=== PATIENT | female | born 1995 | race Asian ===

== ENCOUNTER 2019-04-26 21:16 | Emergency (ER) | payer OTHER ==
[2019-04-26 21:30] VITALS: BP 108/72
--- NOTE | 2019-04-26 22:03 | UC ---
Complaint Female HPI - HPI Summary HPI Summary: Treated for BV one week ago with metronidazole; was advised to come for a test for cure. Currently at end of menses and is not aware of discharge , itch, dysuria or pelvic pain. Second concern is cough which started 2 weeks ago, dry, has some spasms of coughing. Was initally treated with fluticasone and antihistamine with no relief , then given a cough suppressant which caused vomiting when taken with metronidazole. Chest xray last week was normal. No history of asthma. not short of breath, does not feel well. Sleeping ok. - History Of Current Complaint Chief Complaint: UCGU Stated Complaint: BACTERIAL INFECTION FOLLOW UP Time Seen by Provider: 04/26/19 21:29 Hx Obtained From: Patient Hx Last Menstrual Period: 04/22/19 Onset/Duration: Gradual Onset Timing: Intermittent Severity Initially: Mild Severity Currently: Mild Pain Intensity: 0 Character: Not Applicable - Allergies/Home Medications Allergies/Adverse Reactions: Allergies Allergy/AdvReac Type Severity Reaction Status Date / Time No Known Allergies Allergy Verified 04/26/19 21:30 Home Medications: Home Medications Cough Med* PRN 04/26/19 [History] PMH/Surg Hx/FS Hx/Imm Hx Previously Healthy: Yes - Surgical History Surgical History: Yes Surgery Procedure, Year, and Place: ORAL SURGERY - Family History Known Family History: Positive: Respiratory Disease - brother has asthma - Social History Occupation: Employed Full-time, Student Lives: Alone Alcohol Use: Occasionally Substance Use Type: None Smoking Status (MU): Current Some Day Smoker Review of Systems All Other Systems Reviewed And Are Negative: Yes Constitutional: Positive: Negative. Negative: Fever, Fatigue ENT: Negative: Sore Throat, Ear Ache Respiratory: Positive: Cough. Negative: Shortness Of Breath Genitourinary: Positive: Negative Motor: Positive: Negative Musculoskeletal: Positive: Negative Is Patient Immunocompromised?: No Physical Exam Triage Information Reviewed: Yes Appearance: Well-Appearing, No Pain Distress Vital Signs: Initial Vital Signs Temp 99 F 04/26/19 21:25 Pulse 109 04/26/19 21:25 Resp 16 04/26/19 21:25 BP 108/72 04/26/19 21:25 Pulse Ox 100 04/26/19 21:25 Eye Exam: Normal ENT: Positive: Pharynx normal, TMs normal Neck: Positive: Supple, Nontender, No Lymphadenopathy Respiratory: Positive: Lungs clear, Normal breath sounds Cardiovascular: Positive: RRR, No Murmur Pelvic Exam: Positive: Other - BD Affirm swab obtained. Musculoskeletal Exam: Normal Neurological Exam: Normal Psychological Exam: Normal Skin Exam: Normal Complaint Female Dx - Course Course Of Treatment: Wait for follow up BD Affirm to ensure successful treatment. Discussed symptomatic treatment for cough - Differential Dx/Diagnosis Provider Diagnosis: Bacterial vaginosis, URI with cough and congestion Discharge - Sign-Out/Discharge Documenting (check all that apply): Patient Departure All imaging exams completed and their final reports reviewed: No Studies - Discharge Plan Condition: Stable Disposition: HOME Patient Education Materials: Bacterial Vaginosis (ED), Upper Respiratory Infection (ED) Referrals: No Primary Care Phys,NOPCP [Primary Care Provider] - Additional Instructions: The results of the vaginal swab will be able available on Tuesday morning. You will be called with a positive result, but can check in if you would like to confirm a negative result. The cough is likely secondary to a viral illness, and I suggest use of a suppressant until it passes. You can use Delsym over the counter, which is long acting and usually effective. - Billing Disposition and Condition Condition: STABLE Disposition: Home
== END 2019-04-26 22:15 | disposition home or self-care (01) ==
LOC: UCEAST 21:16
DX: N76.0 Acute vaginitis (principal); J06.9 Acute upper respiratory infection, unspecified; F17.210 Nicotine dependence, cigarettes, uncomplicated
CPT/HCPCS: 87480; 87510; 99212; G0463

== ENCOUNTER 2019-06-12 21:21 | Emergency (ER) | payer OTHER ==
--- NOTE | 2019-06-12 21:23 | UC ---
Complaint Female HPI - HPI Summary HPI Summary: 23 yo female presents with vaginal odor and discharge. She tells me that 1 month ago she was in [place] and tested positive for BV and was rx'd flagyl BID for 7 days, but she only took the medicine once a day for a few days and her infection never cleared. Over the last few days her odor and discharge has increased. She denies abdominal pain, n/v, dysuria, flank pain, vaginal bleeding. - History Of Current Complaint Stated Complaint: PRIVATE ISSUE Time Seen by Provider: 06/12/19 21:23 Hx Obtained From: Patient Hx Last Menstrual Period: 04/22/19 Severity Initially: Mild Severity Currently: Moderate Pain Intensity: 5 Pain Scale Used: 0-10 Numeric - Allergies/Home Medications Allergies/Adverse Reactions: Allergies Allergy/AdvReac Type Severity Reaction Status Date / Time No Known Allergies Allergy Verified 06/12/19 21:32 Home Medications: Home Medications Ibuprofen TAB* [Motrin TAB* 600 MG] 600 mg PO Q6H PRN 06/12/19 [History Confirmed 06/12/19] PMH/Surg Hx/FS Hx/Imm Hx - Additional Past Medical History Additional PMH: None - Surgical History Surgical History: Yes Surgery Procedure, Year, and Place: ORAL SURGERY - Family History Known Family History: Positive: Respiratory Disease - brother has asthma - Social History Lives: With Family Alcohol Use: Occasionally Substance Use Type: None Smoking Status (MU): Current Some Day Smoker Review of Systems All Other Systems Reviewed And Are Negative: Yes Constitutional: Positive: Negative Skin: Positive: Negative Respiratory: Positive: Negative Cardiovascular: Positive: Negative Genitourinary: Positive: Vaginal/Penile Discharge Neurovascular: Positive: Negative Neurological: Positive: Negative Psychological: Positive: Negative Physical Exam - Summary Physical Exam Summary: GENERAL: NAD. WDWN. No pain distress. SKIN: No rashes, sores, lesions, or open wounds. NECK: Supple. Nontender. No lymphadenopathy. CHEST: CTAB. No r/r/w. No accessory muscle use. Breathing comfortably and in no distress. CV: RRR. Without m/r/g. Pulses intact. Cap refill <2seconds ABDOMEN: Soft. NTTP. No CVA tenderness. Bowel sounds present NEURO: Alert. PSYCH: Age appropriate behavior. Triage Information Reviewed: Yes Vital Signs: Vital Signs: Temp Pulse Resp BP Pulse Ox 98.6 F 80 16 127/82 98 06/12/19 21:26 06/12/19 21:26 06/12/19 21:26 06/12/19 21:26 06/12/19 21:26 Vital Signs Reviewed: Yes Pelvic Exam: Positive: External Exam Normal, No Cerv. Motion Tender, No Masses, Discharge - mild thin white with fishy odor, Other - Exam assisted by Caty PALACIO. Negative: Active Bleeding, Ulcers Complaint Female Dx - Course Course Of Treatment: Exam consistent with BV. Will rx for flagyl and advised to take medication as prescribed - Differential Dx/Diagnosis Provider Diagnosis: Bacterial vaginosis Discharge - Sign-Out/Discharge Documenting (check all that apply): Patient Departure All imaging exams completed and their final reports reviewed: No Studies - Discharge Plan Condition: Stable Disposition: HOME Prescriptions: metroNIDAZOLE [Flagyl] 500 mg PO BID #14 tablet Patient Education Materials: Bacterial Vaginosis (ED) Referrals: No Primary Care Phys,NOPCP [Primary Care Provider] - Additional Instructions: If you develop a fever, shortness of breath, chest pain, new or worsening symptoms - please call your PCP or go to the ED immediately. - Billing Disposition and Condition Condition: STABLE Disposition: Home
[2019-06-12 21:32] VITALS: BP 127/82
[2019-06-12] MEDS ORDERED: metroNIDAZOLE TAB* 250 MG PO ONE (21:44)
== END 2019-06-12 22:00 | disposition home or self-care (01) ==
LOC: UCEAST 21:21
DX: N76.0 Acute vaginitis (principal); Z87.891 Personal history of nicotine dependence
CPT/HCPCS: 87480; 87510; 87660; 99212; A9270-GY; G0463

== ENCOUNTER 2019-07-03 17:15 | Emergency (ER) | payer OTHER ==
[2019-07-03 17:27] VITALS: BP 122/81
--- NOTE | 2019-07-03 19:05 | UC ---
Complaint Female HPI - HPI Summary HPI Summary: 23-year-old female presents for persistent vaginal discharge. She was seen here on 06/12/2019 with a foul-smelling vaginal discharge, vaginal itching, and some dysuria and was treated for bacterial vaginosis with a seven-day course of metronidazole. Patient states that she was treated 2 previous times for BV in February and April of this year oral metronidazole however it sounds she may not have taken the antibiotics as directed. Affirm testing performed at her last visit was positive for Gardnerella, negative for Kiersten, and Trichomonas. Patient states that all of her other symptoms have resolved at this time but continues to have malodorous discharge. She is sexually active with a single male partner and uses condoms consistently however she reports that she did have one episode of a condom breakage within the last couple of months. States she is about to begin her menses. Denies fever, chills, abdominal pain, nausea, vomiting, diarrhea, back or flank pain, dysuria, frequency, urgency, hematuria, or dyspareunia. - History Of Current Complaint Chief Complaint: UCGU Stated Complaint: PERSONAL Time Seen by Provider: 07/03/19 17:27 Hx Obtained From: Patient Hx Last Menstrual Period: 06/01/2019 Pain Intensity: 0 - Allergies/Home Medications Allergies/Adverse Reactions: Allergies Allergy/AdvReac Type Severity Reaction Status Date / Time No Known Allergies Allergy Verified 07/03/19 17:24 PMH/Surg Hx/FS Hx/Imm Hx Previously Healthy: Yes - Denies significant PMH - Surgical History Surgical History: Yes Surgery Procedure, Year, and Place: ORAL SURGERY - Family History Known Family History: Positive: Respiratory Disease - brother has asthma - Social History Occupation: Employed Full-time Lives: Dormitory/Roommates Alcohol Use: Occasionally Substance Use Type: None Smoking Status (MU): Current Some Day Smoker Type: Shwetha Review of Systems All Other Systems Reviewed And Are Negative: Yes Constitutional: Negative: Fever, Chills Respiratory: Positive: Negative Cardiovascular: Positive: Negative Gastrointestinal: Negative: Abdominal Pain, Vomiting, Diarrhea, Nausea Genitourinary: Positive: Vaginal/Penile Discharge. Negative: Dysuria, Hematuria , Frequency, Urgency, Ulceration/Lesion, Abnormal Bleeding Musculoskeletal: Positive: Negative Neurological: Positive: Negative Is Patient Immunocompromised?: No Physical Exam - Summary Physical Exam Summary: GENERAL APPEARANCE: Well developed, well nourished, alert and cooperative, and appears to be in no acute distress. CARDIAC: Normal S1 and S2. No S3, S4 or murmurs. Rhythm is regular. There is no peripheral edema, cyanosis or pallor. Extremities are warm and well perfused. Capillary refill is less than 2 seconds. Peripheral pulses intact. LUNGS: Clear to auscultation without rales, rhonchi, wheezing or diminished breath sounds. ABDOMEN: Positive bowel sounds. Soft, nondistended, nontender. No guarding or rebound. No masses or hepatosplenomegally. No CVA tenderness. UROGENITAL: Pelvic deferred at this time. MUSKULOSKELETAL: ROM intact to all extremities. No joint erythema or tenderness. Normal muscular development. Normal gait. SKIN: Skin normal color, texture and turgor with no lesions or eruptions. Triage Information Reviewed: Yes Vital Signs: Initial Vital Signs Temp 99.3 F 07/03/19 17:24 Pulse 98 07/03/19 17:24 Resp 18 07/03/19 17:24 BP 122/81 07/03/19 17:24 Pulse Ox 100 07/03/19 17:24 Vital Signs Reviewed: Yes Complaint Female Dx - Course Course Of Treatment: 23-year-old female presents for persistent vaginal discharge. She was seen here on 06/12/2019 with a foul-smelling vaginal discharge, vaginal itching, and some dysuria and was treated for bacterial vaginosis with a seven-day course of metronidazole. Patient states that she was treated 2 previous times for BV in February and April of this year oral metronidazole however it sounds she may not have taken the antibiotics as directed. Affirm testing performed at her last visit was positive for Gardnerella, negative for Kiersten, and Trichomonas. Patient states that all of her other symptoms have resolved at this time but continues to have malodorous discharge. She is sexually active with a single male partner and uses condoms consistently however she reports that she did have one episode of a condom breakage within the last couple of months. States she is about to begin her menses. Denies fever, chills, abdominal pain, nausea, vomiting, diarrhea, back or flank pain, dysuria, frequency, urgency, hematuria, or dyspareunia. Afebrile. Vital signs stable. Patient had an overall unremarkable exam. Because the patient has received treatment for BV with metronidazole on 3 separate occasions I am recommending that we try treating with clindamycin 2% cream intravaginally at bedtime for 7 days. Although her testing at her previous appointment was consistent with BV, her history of having a condom break during intercourse have recommended STI screening which she is agreeable to doing. She is to return here or follow up with her primary care for any concerns. Anticipatory guidance and warning symptoms were reviewed with the patient. Verbalizes understanding and agrees with plan of care. - Differential Dx/Diagnosis Differential Diagnosis/HQI/PQRI: Pelvic Inflammatory Disease, Sexually Transmitted Disease, Urinary Tract Infection Provider Diagnosis: Bacterial vaginosis Discharge ED - Sign-Out/Discharge Documenting (check all that apply): Patient Departure All imaging exams completed and their final reports reviewed: No Studies - Discharge Plan Condition: Stable Disposition: HOME Prescriptions: Clindamycin Phosphate [Cleocin 2 % VAGINAL GEL] 2 % VA BEDTIME #1 cre Patient Education Materials: Bacterial Vaginosis (ED) Referrals: No Primary Care Phys,NOPCP [Primary Care Provider] - Additional Instructions: With your continued vaginal discharge and history of treatment for BV on multiple occasions with metronidazole we will try treating it with an antibiotic cream instead. Use clindamycin 2% cream. Insert 1 applicator full intravaginally at bedtime for 7 days. We have done screening for sexually transmitted infections including gonorrhea, chlamydia, HIV, and syphilis. We will notify you if any of these are positive and require treatment. You should abstain from sexual intercourse for the next week. Return here or follow-up with your primary care provider in one week if symptoms are not improving. Seek immediate medical attention in the emergency room if you develop a fever greater than 100.5 F, has severe abdominal pain, pelvic pain, or any worsening of symptoms. - Billing Disposition and Condition Condition: STABLE Disposition: Home - Attestation Statements Provider Attestation: Per institutional requirements, I have reviewed the chart, however, I was not consulted specifically or made aware of this patient by the midlevel provider. I did not personally evaluate, interact with , or disposition this patient.
[2019-07-04 13:30] LABS: HIV 4th Generation Nonreactive (Nonreactive)
[2019-07-05 12:05] LABS: Chlamydia trachomatis NAA Negative (Negative); Neisseria gonorrhoeae (GC) NAA Negative (Negative)
== END 2019-07-03 19:16 | disposition home or self-care (01) ==
LOC: UCEAST 17:15
DX: N76.0 Acute vaginitis (principal); F17.290 Nicotine dependence, other tobacco product, uncomplicated
CPT/HCPCS: 36415; 86780; 87389; 87491; 87591; 99212; G0463

== ENCOUNTER → 2019-07-03 | Emergency (ER) | payer SELFPAY | END | disposition home or self-care (01) | LOC: UCEAST 16:59 | DX: Z02.9 Encounter for administrative examinations, unspecified (principal) ==

== ENCOUNTER 2019-08-23 21:34 | Emergency (ER) | payer OTHER ==
[2019-08-23 21:50] VITALS: BP 126/76
--- NOTE | 2019-08-23 22:10 | UC ---
Complaint Female HPI - HPI Summary HPI Summary: 23-year-old female who has had some vaginal itchiness. She states she has a history of Gardnerella and she thinks that she has it again. She states she's had some foul-smelling discharge over the past few days. She was treated approximately 2-3 weeks ago with an antibiotic for Gardnerella. - History Of Current Complaint Chief Complaint: UCGU Stated Complaint: ITCHINESS Time Seen by Provider: 08/23/19 21:52 Hx Obtained From: Patient Hx Last Menstrual Period: 2 weeks ?: No Onset/Duration: Gradual Onset Timing: Constant Severity Initially: Mild Severity Currently: Mild Pain Intensity: 1 Character: Not Applicable Aggravating Factor(s): Nothing Alleviating Factor(s): Nothing Associated Signs And Symptoms: Positive: Vaginal Discharge - Patient states she' s had some foul-smelling greenish whitish discharge and a lot of vaginal itching - Allergies/Home Medications Allergies/Adverse Reactions: Allergies Allergy/AdvReac Type Severity Reaction Status Date / Time No Known Allergies Allergy Verified 08/23/19 21:49 PMH/Surg Hx/FS Hx/Imm Hx Previously Healthy: Yes - Surgical History Surgical History: Yes Surgery Procedure, Year, and Place: ORAL SURGERY - Family History Known Family History: Positive: Respiratory Disease - brother has asthma - Social History Alcohol Use: Occasionally Substance Use Type: None Smoking Status (MU): Former Smoker Type: eCigarettes Review of Systems All Other Systems Reviewed And Are Negative: Yes Genitourinary: Positive: Vaginal/Penile Itching, Vaginal/Penile Discharge - Vaginal itching along with greenish foul-smelling discharge and white discharge today. Physical Exam Triage Information Reviewed: Yes Appearance: Well-Appearing, Well-Nourished Vital Signs: Initial Vital Signs Temp 98.2 F 08/23/19 21:45 Pulse 85 08/23/19 21:45 Resp 16 08/23/19 21:45 BP 126/76 08/23/19 21:45 Pulse Ox 100 08/23/19 21:45 Vital Signs Reviewed: Yes Respiratory: Positive: Lungs clear, Normal breath sounds, No respiratory distress, No accessory muscle use Cardiovascular: Positive: RRR, No Murmur, Pulses Normal, Brisk Capillary Refill Abdomen Description: Positive: Nontender, No Organomegaly, Soft. Negative: CVA Tenderness (R), CVA Tenderness (L), Hepatomegaly, Splenomegaly Bowel Sounds: Positive: Present Pelvic Exam: Positive: External Exam Normal, Bimanual Exam Normal, No Cerv. Motion Tender, Discharge - Patient has whitish discharge which looks more yeastlike.. Negative: Tender w/ Cervical Motion, Tender Adnexa, Tender Uterus, Ulcers Musculoskeletal Exam: Normal Neurological Exam: Normal Psychological Exam: Normal Skin Exam: Normal Complaint Female Dx - Course Course Of Treatment: The patient tolerated the pelvic exam without difficulty. At this point it appears to be more like a vaginal yeast infection. I did do an affirm swab as well as GC and chlamydia and Trichomonas. I'm going to treat the patient with Diflucan pending the other culture reports. She is agreeable to waiting for those reports. - Differential Dx/Diagnosis Provider Diagnosis: Yeast infection Discharge ED - Sign-Out/Discharge Documenting (check all that apply): Patient Departure All imaging exams completed and their final reports reviewed: No Studies - Discharge Plan Condition: Good Disposition: HOME Prescriptions: Fluconazole 150 MG TAB* [Diflucan 150 MG TAB*] 150 mg PO UC ONCE 1 Days #1 tablet Patient Education Materials: Yeast Infection (ED) Referrals: [facility] [Outside] No Primary Care Phys,NOPCP [Primary Care Provider] - Additional Instructions: Follow-up with your primary care provider or your [employer]ILDHO[employer] physician if no improvement in 3 or 4 days. If you do not hear from us in 2 days and call here for the culture results. - Billing Disposition and Condition Condition: GOOD Disposition: Home - Attestation Statements Provider Attestation: This patient was not seen by. I was available for consult. Chart reviewed. ALEX
--- NOTE | 2019-08-25 15:15 | UC ---
- Progress Note Progress Note: please notify pt +BV Erxed flagyl 500 BID x 7 days give EtOH warning Course/Dx - Diagnoses Provider Diagnoses: Yeast infection Discharge ED - Sign-Out/Discharge Documenting (check all that apply): Post-Discharge Follow Up All imaging exams completed and their final reports reviewed: No Studies - Discharge Plan Condition: Good Disposition: HOME Prescriptions: Fluconazole 150 MG TAB* [Diflucan 150 MG TAB*] 150 mg PO UC ONCE 1 Days #1 tablet Patient Education Materials: Yeast Infection (ED) Referrals: [facility] [Outside] No Primary Care Phys,NOPCP [Primary Care Provider] - Additional Instructions: Follow-up with your primary care provider or your [employer]PER[employer] physician if no improvement in 3 or 4 days. If you do not hear from us in 2 days and call here for the culture results. - Billing Disposition and Condition Condition: GOOD Disposition: Home
[2019-08-27 12:32] LABS: Chlamydia trachomatis NAA Negative (Negative); Neisseria gonorrhoeae (GC) NAA Negative (Negative)
--- NOTE | 2019-08-27 16:10 | UC ---
- Progress Note Progress Note: Endocervical results for GC/chlamydia, Trichomonas and T.vaginalis were negative. Nursing staff will call the patient and inform her. Course/Dx - Diagnoses Provider Diagnoses: Yeast infection Discharge ED - Sign-Out/Discharge Documenting (check all that apply): Post-Discharge Follow Up All imaging exams completed and their final reports reviewed: No Studies - Discharge Plan Condition: Good Disposition: HOME Prescriptions: Fluconazole 150 MG TAB* [Diflucan 150 MG TAB*] 150 mg PO UC ONCE 1 Days #1 tablet metroNIDAZOLE [Flagyl 500 MG TAB] 500 mg PO BID #14 tab Patient Education Materials: Yeast Infection (ED) Referrals: [facility] [Outside] No Primary Care Phys,NOPCP [Primary Care Provider] - Additional Instructions: Follow-up with your primary care provider or your [employer] physician if no improvement in 3 or 4 days. If you do not hear from us in 2 days and call here for the culture results. - Billing Disposition and Condition Condition: GOOD Disposition: Home
== END 2019-08-23 22:30 | disposition home or self-care (01) ==
LOC: UCEAST 21:34
DX: B37.9 Candidiasis, unspecified (principal); Z87.891 Personal history of nicotine dependence
CPT/HCPCS: 87480; 87491; 87510; 87591; 87661; 99212; G0463

== ENCOUNTER 2019-12-24 22:29 | Emergency (ER) | payer OTHER ==
--- NOTE | 2019-12-25 02:25 | ED ---
Skin Complaint - HPI Summary HPI Summary: This pt is a 24 Y/O F presenting to [facility] with a CC of a skin abrasion that occurred on 12/21/21 that is rated a 7/10 in severity. She states that she fell in the street and used rubbing alcohol and then soap and water to clean the wound. She states that the wound has not stopped bleeding and is now currently oozing green liquid with erythema and warmth. She denies any fevers, headaches, chills, N/V, SOB, and CP. She denies any aggravating or alleviating factors. She has no pertinent PMHx. - History of Current Complaint Chief Complaint: EDExtremityLower Time Seen by Provider: 12/25/19 01:56 Stated Complaint: RT KNEE INJURY PER PT Hx Obtained From: Patient Hx Last Menstrual Period: 2 weeks Onset/Duration: Started Days Ago - 4, Still Present Skin Exposure Onset/Duration: Days Ago - 4 Timing: Constant, Lasting Days - 4 Onset Severity: Moderate Current Severity: Moderate Pain Intensity: 7 Pain Scale Used: 0-10 Numeric Skin Location: Leg - R knee Character: Pruritus, Redness Aggravating Symptom(s): Nothing Alleviating Symptom(s): Nothing Associated Signs & Symptoms: Negative - fevers, headaches, chills, N/V, SOB, and CP., Drainage - green, Tenderness Related History: Trauma - states she fell on 12/21/2019 - Allergy/Home Medications Allergies/Adverse Reactions: Allergies Allergy/AdvReac Type Severity Reaction Status Date / Time No Known Allergies Allergy Verified 12/24/19 22:36 Home Medications: Home Medications Cephalexin CAP* [Keflex CAP*] 500 mg PO QID #27 cap 12/25/19 [Rx] PMH/Surg Hx/FS Hx/Imm Hx Previously Healthy: Yes Endocrine/Hematology History: Denies: Hx Diabetes, Hx Thyroid Disease Cardiovascular History: Denies: Hx Hypertension Respiratory History: Denies: Hx Asthma, Hx Chronic Obstructive Pulmonary Disease (COPD) GI History: Denies: Hx Ulcer - Cancer History Hx Chemotherapy: No Hx Radiation Therapy: No - Surgical History Surgical History: Yes Surgery Procedure, Year, and Place: ORAL SURGERY - Immunization History Immunizations Up to Date: Yes Infectious Disease History: No Infectious Disease History: Denies: Hx Hepatitis, Hx Human Immunodeficiency Virus (HIV), Traveled Outside the [place] in Last 30 Days - Family History Known Family History: Positive: Respiratory Disease - brother has asthma - Social History Occupation: Student - [employer] Lives: Dormitory/Roommates Alcohol Use: Occasionally Hx Substance Use: No Substance Use Type: Reports: None Hx Tobacco Use: Yes Smoking Status (MU): Former Smoker Type: eCigarettes Review of Systems Negative: Fever, Chills Negative: Chest Pain Negative: Shortness Of Breath Negative: Vomiting, Nausea Skin: Other - POSITIVE: erythema, drainage, and warmth eminating from R leg wound Negative: Headache All Other Systems Reviewed And Are Negative: Yes Physical Exam - Summary Physical Exam Summary: Constitutional: Well-developed, Well-nourished, Alert. (-) Distressed Skin: Warm, Dry, Extending erythema around the 5 cm circular laceration. Warm to touch, no active drainage. Discoloration and dried drainage is visible HENT: Normocephalic; Atraumatic Eyes: Conjunctiva normal Neck: Musculoskeletal ROM normal neck. (-) JVD, (-) Stridor, (-) Tracheal deviation Cardio: Rhythm regular, rate normal, Heart sounds normal; Intact distal pulses; The pedal pulses are 2+ and symmetric. Radial pulses are 2+ and symmetric. Pulmonary/Chest wall: Effort normal. (-) Respiratory distress, (-) Wheezes, (-) Rales Abd: Soft, (-) tenderness, (-) Distension, (-) Guarding, (-) Rebound Musculoskeletal: (-) Edema Neuro: Alert, Oriented x3 Psych: Mood and affect Normal Triage Information Reviewed: Yes Vital Signs On Initial Exam: Initial Vitals Temp Pulse Resp BP Pulse Ox 98.7 F 111 15 131/96 98 12/24/19 22:35 12/24/19 22:35 12/24/19 22:35 12/24/19 22:35 12/24/19 22:35 Vital Signs Reviewed: Yes Procedures - Sedation Patient Received Moderate/Deep Sedation with Procedure: No Diagnostics - Vital Signs Vital Signs Temp Pulse Resp BP Pulse Ox 12/25/19 01:17 97.8 F 95 16 126/73 99 12/24/19 22:35 98.7 F 111 15 131/96 98 - Laboratory Lab Statement: Any lab studies that have been ordered have been reviewed, and results considered in the medical decision making process. Course/Dx - Course Course Of Treatment: This pt is a 24 Y/O F presenting to [facility] with a CC of a skin abrasion that occurred on 12/21/21. She states that she fell in the street and used rubbing alcohol and then soap and water to clean the wound. She states that the wound has not stopped bleeding and is now currently oozing green liquid with erythema and warmth. Her PE found Extending erythema around the 5 cm circular laceration. Warm to touch, no active drainage. Discoloration and dried drainage is visible. She will be discharged home with a Dx of an abrasion with cellulitis. - Diagnoses Provider Diagnoses: Abrasion, Cellulitis Discharge ED - Sign-Out/Discharge Documenting (check all that apply): Patient Departure - discharge - Discharge Plan Condition: Good Disposition: HOME Prescriptions: Cephalexin CAP* [Keflex CAP*] 500 mg PO QID #27 cap Patient Education Materials: Cellulitis (ED) Referrals: [facility] @ [Outside] - 2 Days Additional Instructions: PLEASE FOLLOW UP WITH THE [facility] IN 3-5 DAYS AND RETURN TO THE EMERGENCY DEPARTMENT FOR ANY NEW OR WORSENING SYMPTOMS. Please take the prescribed medications as directed and for the duration indicated. Attach the bandage to the knee loosely to allow the wound to heal and remember to keep the area dry. - Billing Disposition and Condition Condition: GOOD Disposition: Home - Attestation Statements Document Initiated by León: Yes Documenting Scribe: Asa Rios Provider For Whom León is Documenting (Include Credential): Gera Jimenes MD Scribe Attestation: Asa Syed scribed for Gera Jimenes MD on 12/25/19 at 0447. Scribe Documentation Reviewed: Yes Provider Attestation: The documentation as recorded by the Asa archuleta accurately reflects the service I personally performed and the decisions made by me, Gera Jimenes MD Status of Scribcuba Document: Viewed
[2019-12-25] MEDS ORDERED: Cephalexin CAP* 500 MG PO ONE (02:34)
[2019-12-25 02:43] VITALS: BP 0/0
== END 2019-12-25 02:41 | disposition home or self-care (01) ==
LOC: ED 22:29
DX: S80.211A Abrasion, right knee, initial encounter (principal); L03.115 Cellulitis of right lower limb; W18.30XA Fall on same level, unspecified, initial encounter; Y92.410 Unspecified street and highway as the place of occurrence of the external cause; Z87.891 Personal history of nicotine dependence
CPT/HCPCS: 99282; A9270-GY

== ENCOUNTER 2020-01-03 19:30 | Emergency (ER) | payer OTHER ==
[2020-01-03 20:01] VITALS: BP 118/78
--- NOTE | 2020-01-03 20:08 | UC ---
Complaint Female HPI - HPI Summary HPI Summary: 24 y/o female presents to the urgent care c/o white vaginal discharge, w/ a fishy odor and mild itchiness for the past 2 days. Pt reports she recently finished antibiotic for a knee injury. She also has mild urinary frequency and burning on urination. Denies pelvic pain or lower back pain, fever, flank pain, abdominal pain, N/v/D. LMP: 12/25/2019 w/ irregular menstrual cycles. Pt also requests STD's screening. - History Of Current Complaint Chief Complaint: UCGU Stated Complaint: PERSONAL Time Seen by Provider: 01/03/20 20:07 Hx Obtained From: Patient Hx Last Menstrual Period: 01/01/20 Onset/Duration: Gradual Onset, Lasting Weeks - 1 week s/ vaginal discharge and fishy odor and urianry symptoms, Still Present Timing: Lasting Weeks - 1 week Severity Initially: Mild Severity Currently: Moderate Pain Intensity: 0 Pain Scale Used: 0-10 Numeric Character: Burning Aggravating Factor(s): Urination Alleviating Factor(s): Nothing Associated Signs And Symptoms: Positive: Vaginal Discharge - w/ fishy odor. Negative: Fever, Back Pain, Nausea, Vomiting(# Of Episodes =), Genital Swelling , Genital Blisters - Risk Factors Ectopic Risk Factor: Negative Ovarian Torsion Risk Factor: Negative - Allergies/Home Medications Allergies/Adverse Reactions: Allergies Allergy/AdvReac Type Severity Reaction Status Date / Time No Known Allergies Allergy Verified 01/03/20 20:02 Home Medications: Home Medications metroNIDAZOLE VAGINAL 0.75%* 1 applic VAGINAL BEDTIME #1 tube 01/03/20 [Rx] PMH/Surg Hx/FS Hx/Imm Hx Previously Healthy: Yes - Pt denies PMHX - Surgical History Surgical History: Yes Surgery Procedure, Year, and Place: ORAL SURGERY - Family History Known Family History: Positive: Cardiac Disease, Hypertension, Diabetes, Respiratory Disease - brother has asthma - Social History Occupation: Employed Full-time Lives: With Family Alcohol Use: Occasionally Substance Use Type: None Smoking Status (MU): Former Smoker Type: eCigarettes Review of Systems All Other Systems Reviewed And Are Negative: Yes Constitutional: Positive: Negative Skin: Positive: Negative Eyes: Positive: Negative ENT: Positive: Negative Respiratory: Positive: Negative Cardiovascular: Positive: Negative Gastrointestinal: Positive: Negative Genitourinary: Positive: Dysuria, Frequency, Vaginal/Penile Itching, Vaginal/ Penile Discharge Motor: Positive: Negative Neurovascular: Positive: Negative Musculoskeletal: Positive: Negative Neurological/Mental Status: Positive: Negative Psychological: Positive: Negative Is Patient Immunocompromised?: No Physical Exam - Summary Physical Exam Summary: Vital signs: reviewed General: well developed, well nourished female sitting in the examining table w/o any acute distress. Head: Normocephalic, no lesions. Eyes: PERRLA, EOM's full, conjunctiva clear, fundi grossly normal. Ears: EAC's clear, TM's normal. Nose: Mucosa normal, no obstruction. Throat: Clear, no exudates, no lesions. Neck: Supple, no masses, no thyromegaly, no bruits. Chest: Lungs clear, no rales, no rhonchi, no wheezes. Heart: RR, no murmurs, no rubs, no gallops. Abdomen: Soft, no tenderness, no masses, BS normal. Pelvic: I was assisted by nurse Gladis. External genitalia within normal limits. There is no lesions there is no masses noted. Speculum exam: The vaginal kwong are within normal limits w/ greyish vaginal discharge w/ fishy odor, no lesions or rashes. The cervix is closed with no lesions or masses. There is no CMT's, and no adnexal masses. Sample sent to Lab for G/C and Affirm panel. Rectal: No lesions, no hemorrhoids, Back: Normal curvature, no tenderness. Extremities: FROM, no deformities, no edema, no erythema. Neuro: Physiological, no localizing findings. Skin: Normal, no rashes, no lesions noted. Triage Information Reviewed: Yes Vital Signs: Initial Vital Signs Temp 99.9 F 01/03/20 19:56 Pulse 74 01/03/20 19:56 Resp 16 01/03/20 19:56 BP 118/78 01/03/20 19:56 Pulse Ox 100 01/03/20 19:56 Complaint Female Dx - Course Course Of Treatment: 24 y/o female presents to the urgent care c/o white vaginal discharge, w/ a fishy odor and mild itchiness for the past 2 days. Pt reports she recently finished antibiotic for a knee injury. She also has mild urinary frequency and burning on urination. Denies pelvic pain or lower back pain, fever, flank pain, abdominal pain, N/v/D. LMP: 12/25/2019 w/ irregular menstrual cycles. Pt also requests STD's screening. Hx obtained. Pt with possible Bacterial vaginosis on pelvic examination. UA: negative, test: negative. Pt Rx Metronidazole vaginal cream as directed below. Pt educated on STD's. Advised to f/u with [facility] for PAP. Specimen were sent to lab, Advised she will be notified if any abnormal result from lab. Pt understood and agreed with plan of care. - Differential Dx/Diagnosis Differential Diagnosis/HQI/PQRI: Cervicitis, Pelvic Inflammatory Disease, Renal Colic, Sexually Transmitted Disease, Urinary Tract Infection Provider Diagnosis: Bacterial vaginosis, Screening for STD (sexually transmitted disease) Discharge ED - Sign-Out/Discharge Documenting (check all that apply): Patient Departure - D/C home All imaging exams completed and their final reports reviewed: No Studies - Discharge Plan Condition: Stable Disposition: HOME Prescriptions: metroNIDAZOLE VAGINAL 0.75%* 1 applic VAGINAL BEDTIME #1 tube Patient Education Materials: Bacterial Vaginosis (ED) Referrals: [facility] [[facility]] - 3 Days Additional Instructions: 1-Please apply Metrogel vaginal cream as directed to alleviate possible Bacterial vaginosis 2-UA and pregnacy test : negative 3-Specimen were sent to lab to screen for STD's , if anything abnormal you will receive a call from us for further treatment. 4-If not improvement of symptoms please f/u with your [facility] in 3 days for further evaluation and treatment 5-Apply Bacitracin oint BID over your abrasion on your Rt knee - Billing Disposition and Condition Condition: STABLE Disposition: Home
[2020-01-07 12:32] LABS: Chlamydia trachomatis NAA Negative (Negative); Neisseria gonorrhoeae (GC) NAA Negative (Negative)
[2020-01-07 12:42] LABS: Trichomonas vag NAA Female Negative (Negative)
== END 2020-01-03 21:16 | disposition home or self-care (01) ==
LOC: UCEAST 19:30
DX: N76.0 Acute vaginitis (principal); Z11.3 Encounter for screening for infections with a predominantly sexual mode of transmission; Z87.891 Personal history of nicotine dependence
CPT/HCPCS: 81003; 84702; 87480; 87491; 87510; 87591; 87661; 99212; G0463